=== PATIENT | female | born 1970 | race Caucasian/White ===

== ENCOUNTER 2017-06-03 15:07 | Outpatient (CLI) | payer OTHER ==
[2017-06-03 19:05] LABS: FERRITIN 47.1 ng/mL (11.0-306.8); TOTAL T3 1.29 ng/mL (0.87-1.78)
[2017-06-03 19:16] LABS: THYROID STIMULATING HORMONE 1.6 uIU/mL (0.34-5.60)
== END 2017-06-03 15:08 | disposition home or self-care (01) ==
LOC: LAB.F 15:07
PROVIDERS: ATTEND Family Medicine
DX: E03.9 Hypothyroidism, unspecified (principal); E55.9 Vitamin D deficiency, unspecified; R53.83 Other fatigue
CPT/HCPCS: 36415; 82626; 82728; 84439; 84443; 84480; 84481; 84482

== ENCOUNTER 2017-11-20 07:58 | Outpatient (CLI) | payer OTHER ==
[2017-11-20 13:12] LABS: FREE T4 (FREE THYROXINE) 0.76 ng/dL (0.58-1.64); THYROID STIMULATING HORMONE 2.51 uIU/mL (0.34-5.60)
[2017-11-20 13:16] LABS: FERRITIN 46.6 ng/mL (11.0-306.8); TOTAL T3 1.1 ng/mL (0.87-1.78)
[2017-11-26 10:46] LABS: T3 REVERSE 13 ng/dL (8-25)
== END 2017-11-20 07:59 | disposition home or self-care (01) ==
LOC: LAB.F 07:58
PROVIDERS: ATTEND Family Medicine
DX: E03.9 Hypothyroidism, unspecified (principal); R53.83 Other fatigue
CPT/HCPCS: 36415; 82626; 82728; 84439; 84443; 84480; 84481; 84482

== ENCOUNTER 2018-04-07 17:16 | Outpatient (CLI) | payer OTHER | END 2018-04-07 17:17 | disposition critical access hospital (66) | LOC: EMS 17:16 | PROVIDERS: ATTEND Surgery | DX: M25.511 Pain in right shoulder (principal); M54.2 Cervicalgia; V28.4XXA Motorcycle driver injured in noncollision transport accident in traffic accident, initial encounter; Y92.410 Unspecified street and highway as the place of occurrence of the external cause | CPT/HCPCS: A0425; A0429 ==

== ENCOUNTER 2018-04-07 17:53 | Emergency (ER) | payer OTHER ==
[2018-04-07 18:53] VITALS: BP 119/78
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
== END 2018-04-07 19:45 | disposition home or self-care (01) ==
LOC: ED 17:53
DX: Z04.1 Encounter for examination and observation following transport accident (principal); V28.4XXA Motorcycle driver injured in noncollision transport accident in traffic accident, initial encounter
CPT/HCPCS: 71045; 72125; 99283

== ENCOUNTER 2020-05-15 16:45 | Outpatient (CLI) | payer OTHER | END 2020-05-15 16:46 | disposition home or self-care (01) | LOC: COV 16:45 | PROVIDERS: ATTEND Family Medicine | DX: R50.9 Fever, unspecified (principal); R53.83 Other fatigue; R19.7 Diarrhea, unspecified; J02.9 Acute pharyngitis, unspecified; Z20.828 Contact with and (suspected) exposure to other viral communicable diseases ==

== ENCOUNTER 2021-11-20 07:44 | Outpatient (CLI) | payer OTHER ==
--- NOTE | 2021-11-21 06:44 | Mammography Report ---
BILATERAL DIGITAL SCREENING MAMMOGRAM 3D/2D WITH EXAGGERATED CC: 11/20/2021 CLINICAL: Routine screening. Family history of breast cancer. Comparison is made to exams dated: 07/18/2008 mammogram - and 07/02/2015 mammo gram - [facility]. The tissue of both breasts is heterogeneously dense. This may l ower the sensitivity of mammography. No significant masses, calcifications, or other findings are seen in either breast. There has been no significant interval change. IMPRESSION: NEGATIVE There is no mammographic evidence of malignancy. A 1 year screening mammogram is recommended. This exam was interpreted at Station ID: [id number]. NOTE: For mammograms, a report in lay terms will be sent to the patient. Approximately 15% of breast malignancies will not be visualized mammographically. In the management of a palpable breast mass, a negative mammogram must not discourage biopsy of a clinically suspicious lesion. Electronically Signed By: Edgar Mares M.D. aty/penrad:11/20/2021 08:43:29 ACR BI-RADS Category 1: Negative 3341F PARENCHYMAL PATTERN: (D) - The breast(s) demonstrate(s) heterogeneously dense fibroglandular partoni ma. BI-RADS CATEGORY: (1) - 1 RECOMMENDATION: (ANNUAL) - Recommend routine annual screening mammography. [id number] 1 year screening LATERALITY: (B)
== END 2021-11-20 07:45 | disposition home or self-care (01) ==
LOC: DI.S 07:44
PROVIDERS: ATTEND Family Medicine
DX: Z12.31 Encounter for screening mammogram for malignant neoplasm of breast (principal); Z80.3 Family history of malignant neoplasm of breast

== ENCOUNTER 2023-01-19 07:11 | Outpatient (CLI) | payer OTHER ==
[2023-01-19 15:19] LABS: BASOPHILS # (AUTO) 0.1 10^3/uL (0.0-0.1); BASOPHILS % (AUTO) 1.1 %; EOSINOPHILS # (AUTO) 0.3 10^3/uL (0.0-0.7); EOSINOPHILS % (AUTO) 4.7 %; HCT - HEMATOCRIT 44.6 % (37.0-47.0); HGB - HEMOGLOBIN 14.3 g/dL (12.0-16.0); LYMPHOCYTES # (AUTO) 1.5 10^3/uL (1.5-3.5); LYMPHOCYTES % (AUTO) 24.4 %; MEAN CORPUSCULAR HEMOGLOBIN 30.6 pg (27.0-31.0); MEAN CORPUSCULAR HGB CONC 32.1 g/dL (32.0-36.0); MEAN CORPUSCULAR VOLUME 95.5 fL (81.0-99.0); MEAN PLATELET VOLUME 10.1 fL (7.9-10.8); MONOCYTES # (AUTO) 0.6 10^3/uL (0.0-1.0); NEUTROPHILS # (AUTO) 3.8 10^3/uL (1.5-6.6); NEUTROPHILS % (AUTO) 59.6 %; PLT - PLATELET COUNT 297 10^3/uL (130-450); RED BLOOD COUNT 4.67 10^6/uL (4.20-5.40); WHITE BLOOD COUNT 6.3 x10^3/uL (4.8-10.8)
[2023-01-19 15:53] LABS: % IRON SATURATION 25 % (20-50); ALBUMIN 3.8 g/dL (3.2-5.5); ALBUMIN/GLOBULIN RATIO 1.6 (1.0-2.2); ALKALINE PHOSPHATASE 44 IU/L (42-121); ALT ALANINE AMINOTRANSFERASE 23 IU/L (10-60); AST ASPARTATE AMINOTRANSFERASE 24 IU/L (10-42); BILIRUBIN,TOTAL 0.9 mg/dL (0.2-1.0); BUN - BLOOD UREA NITROGEN 9 mg/dL (6-20); CARBON DIOXIDE - CO2 29 mmol/L (21-32); CHLORIDE 103 mmol/L (101-111); CHOL/HDL RATIO 3.1 (<4.4); CHOLESTEROL 206 mg/dL; CREATININE 0.6 mg/dL (0.4-1.0); CRP HIGH SENSITIVITY 17.4 mg/L; GFR - MDRD 104 (>89); GLUCOSE 96 mg/dL (70-100); HDL CHOLESTEROL 67 mg/dL; IRON 63 ug/dL (28-170); LDL CHOLESTEROL,CALCULATED 126 mg/dL; LDL/HDL RATIO 1.9 (<4.4); POTASSIUM 4.3 mmol/L (3.5-5.0); SODIUM 139 mmol/L (135-145); TOTAL IRON BINDING CAPACITY 248 ug/dL (250-450); TOTAL PROTEIN 6.2 g/dL (6.7-8.2); TRANSFERRIN 177 mg/dL (192-382); TRIGLYCERIDES 67 mg/dL; VLDL CHOLESTEROL 13 mg/dL
[2023-01-19 16:01] LABS: THYROID STIMULATING HORMONE 2.39 uIU/mL (0.34-5.60)
[2023-01-19 16:05] LABS: FREE T3 3.33 pg/mL (2.5-3.9)
[2023-01-19 16:06] LABS: FREE T4 (FREE THYROXINE) 0.62 ng/dL (0.58-1.64)
[2023-01-19 16:10] LABS: FERRITIN 63.6 ng/mL (11.0-306.8)
[2023-01-19 20:29] LABS: ESTIMATED AVERAGE GLUCOSE 105 mg/dL (70-100); HEMOGLOBIN A1c% 5.3 % (4.27-6.07)
== END 2023-01-19 07:12 | disposition home or self-care (01) ==
LOC: LAB.S 07:11
PROVIDERS: ATTEND Family Medicine
DX: E03.9 Hypothyroidism, unspecified (principal); R53.83 Other fatigue; E78.5 Hyperlipidemia, unspecified; E55.9 Vitamin D deficiency, unspecified; R73.09 Other abnormal glucose; D64.9 Anemia, unspecified
CPT/HCPCS: 36415; 80053; 80061; 82626; 82728; 83036; 83090; 83540; 83721; 84439; 84443; 84466; 84480; 84481; 84482; 85025; 86141

== ENCOUNTER 2023-04-09 07:12 | Outpatient (CLI) | payer OTHER ==
--- NOTE | 2023-04-09 14:14 | XRAY Report ---
PROCEDURE: Cervical Spine 2 View INDICATIONS: NECK PAIN, B/L PARESTHESIAS TECHNIQUE: 4 view(s) of the cervical spine were acquired. COMPARISON: CT of cervical spine dated 04/07/2018. FINDINGS: Bones: No fractures or dislocations to the T1 level. Degenerative endplate changes, loss of disc hei ght and bilateral facet hypertrophic changes are seen throughout cervical spine. The lateral masses of C1 appear intact on the odontoid view. No suspicious bony lesions. Soft tissues: No prevertebral soft tissue swelling. IMPRESSION: Moderate degenerative disc disease throughout cervical spine. No acute cervical spine fr acture or dislocation. Reviewed by: Vinny Ferrer MD on 04/09/2023 2:13 PM PDT Approved by: Vinny Ferrer MD on 04/09/2023 2:13 PM PDT Station ID: [id number]
[2023-04-09 14:48] LABS: BASOPHILS # (AUTO) 0.1 10^3/uL (0.0-0.1); BASOPHILS % (AUTO) 1.1 %; EOSINOPHILS # (AUTO) 0.2 10^3/uL (0.0-0.7); EOSINOPHILS % (AUTO) 2.3 %; HCT - HEMATOCRIT 46.3 % (37.0-47.0); HGB - HEMOGLOBIN 15.3 g/dL (12.0-16.0); LYMPHOCYTES # (AUTO) 2.1 10^3/uL (1.5-3.5); LYMPHOCYTES % (AUTO) 32.2 %; MEAN CORPUSCULAR HEMOGLOBIN 30.8 pg (27.0-31.0); MEAN CORPUSCULAR VOLUME 93.2 fL (81.0-99.0); MEAN PLATELET VOLUME 10.1 fL (7.9-10.8); MONOCYTES # (AUTO) 0.6 10^3/uL (0.0-1.0); MONOCYTES % (AUTO) 8.3 %; NEUTROPHILS # (AUTO) 3.7 10^3/uL (1.5-6.6); NEUTROPHILS % (AUTO) 55.9 %; PLT - PLATELET COUNT 315 10^3/uL (130-450); RED BLOOD COUNT 4.97 10^6/uL (4.20-5.40); RED CELL DISTRIBUTION WIDTH 12.7 % (12.0-15.0); WHITE BLOOD COUNT 6.6 x10^3/uL (4.8-10.8)
[2023-04-09 15:27] LABS: THYROID STIMULATING HORMONE 3.52 uIU/mL (0.34-5.60)
[2023-04-09 15:29] LABS: FREE T3 3.52 pg/mL (2.5-3.9); FREE T4 (FREE THYROXINE) 0.85 ng/dL (0.58-1.64)
[2023-04-09 15:33] LABS: ALBUMIN 3.9 g/dL (3.2-5.5); ALBUMIN/GLOBULIN RATIO 1.3 (1.0-2.2); BILIRUBIN,TOTAL 0.6 mg/dL (0.2-1.0); CALCIUM 9.1 mg/dL (8.5-10.3); CREATININE 0.7 mg/dL (0.4-1.0); CRP HIGH SENSITIVITY 0.9 mg/L
[2023-04-09 15:34] LABS: FERRITIN 50.7 ng/mL (11.0-306.8)
[2023-04-10 08:10] LABS: VITAMIN D 25-HYDROXY 88.6 ng/mL (30.0-100.0)
[2023-04-13 20:07] LABS: REVERSE T3 SERUM 12.7 ng/dL (.)
== END 2023-04-09 07:13 | disposition home or self-care (01) ==
LOC: DI.S 07:12
PROVIDERS: ATTEND Family Medicine
DX: M50.30 Other cervical disc degeneration, unspecified cervical region (principal); E03.9 Hypothyroidism, unspecified; E78.5 Hyperlipidemia, unspecified; R53.83 Other fatigue; D64.9 Anemia, unspecified; R00.2 Palpitations; E55.9 Vitamin D deficiency, unspecified
CPT/HCPCS: 36415; 80053; 82306; 82626; 82728; 83540; 84439; 84443; 84466; 84480; 84481; 84482; 85025; 86141

== ENCOUNTER 2023-11-04 07:12 | Outpatient (CLI) | payer OTHER ==
[2023-11-04 14:32] LABS: BASOPHILS # (AUTO) 0.1 10^3/uL (0.0-0.1); BASOPHILS % (AUTO) 1.2 %; EOSINOPHILS # (AUTO) 0.2 10^3/uL (0.0-0.7); EOSINOPHILS % (AUTO) 3.6 %; HCT - HEMATOCRIT 45.4 % (37.0-47.0); HGB - HEMOGLOBIN 14.5 g/dL (12.0-16.0); LYMPHOCYTES # (AUTO) 2.2 10^3/uL (1.5-3.5); LYMPHOCYTES % (AUTO) 33.8 %; MEAN CORPUSCULAR HEMOGLOBIN 30.8 pg (27.0-31.0); MEAN CORPUSCULAR HGB CONC 31.9 g/dL (32.0-36.0); MEAN CORPUSCULAR VOLUME 96.4 fL (81.0-99.0); MEAN PLATELET VOLUME 10.1 fL (7.9-10.8); MONOCYTES # (AUTO) 0.5 10^3/uL (0.0-1.0); NEUTROPHILS # (AUTO) 3.5 10^3/uL (1.5-6.6); NEUTROPHILS % (AUTO) 54.2 %; PLT - PLATELET COUNT 299 10^3/uL (130-450); RED BLOOD COUNT 4.71 10^6/uL (4.20-5.40); RED CELL DISTRIBUTION WIDTH 12.7 % (12.0-15.0); WHITE BLOOD COUNT 6.5 x10^3/uL (4.8-10.8)
[2023-11-04 15:58] LABS: THYROID STIMULATING HORMONE 2.34 uIU/mL (0.34-5.60)
[2023-11-04 16:06] LABS: FERRITIN 44.1 ng/mL (11.0-306.8)
[2023-11-04 16:10] LABS: ALBUMIN/GLOBULIN RATIO 1.5 (1.0-2.2); BILIRUBIN,TOTAL 0.9 mg/dL (0.2-1.0); CALCIUM 9.2 mg/dL (8.5-10.3); CREATININE 0.7 mg/dL (0.6-1.3); CRP HIGH SENSITIVITY 1.3 mg/L; POTASSIUM 4.2 mmol/L (3.5-4.5); TOTAL PROTEIN 6.6 g/dL (6.4-8.9)
== END 2023-11-04 07:13 | disposition home or self-care (01) ==
LOC: LAB.S 07:12
PROVIDERS: ATTEND Family Medicine
DX: E03.9 Hypothyroidism, unspecified (principal); E78.5 Hyperlipidemia, unspecified; R53.83 Other fatigue; D64.9 Anemia, unspecified; R00.2 Palpitations
CPT/HCPCS: 36415; 80053; 82626; 82728; 83090; 83540; 84439; 84443; 84466; 84480; 84481; 84482; 85025; 86141

== ENCOUNTER 2023-12-22 07:42 | Outpatient (CLI) | payer OTHER ==
--- NOTE | 2023-12-23 09:54 | Mammography Report ---
BILATERAL DIGITAL SCREENING MAMMOGRAM 3D/2D WITH EXAGGERATED CC: 12/22/2023 CLINICAL: Routine screening. Family history of breast cancer. Comparison is made to exams dated: 11/20/2021 mammogram and 07/02/2015 mammogram - [facility]. Both breasts are heterogeneously dense, which may obscure small masses (category c / 51-75% glandular tissue). No significant masses, calcifications, or other findings are seen in either breast. There has been no significant interval change. IMPRESSION: NEGATIVE There is no mammographic evidence of malignancy. A 1 year screening mammogram is recommended. Based on Tyrer-Cuzick model (a risk assessment model), the patient's lifetime risk is 20.2% and her 1 0 year risk is 6.4%. If a patient has an elevated risk, a more comprehensive evaluation should be con sidered and/or a referral to a genetic counselor. The [place] [employer], [employer], and NCCN Guidelines advise the consideration of Breast MRI as an adjunct to screening mammog natasha in patients whose "Lifetime risk to develop breast cancer" is 20% or higher. This exam was interpreted at Station ID: [id number]. NOTE: For mammograms, a report in lay terms will be sent to the patient. Approximately 15% of breast malignancies will not be visualized mammographically. In the management of a palpable breast mass, a negative mammogram must not discourage biopsy of a clinically suspicious lesion. Electronically Signed By: Edgar Mares M.D. aty/penrad:12/22/2023 09:25:44 ACR BI-RADS Category 1: Negative 3341F PARENCHYMAL PATTERN: (D) - The breast(s) demonstrate(s) heterogeneously dense fibroglandular parkerriy ma. BI-RADS CATEGORY: (1) - 1 RECOMMENDATION: (ANNUAL) - Recommend routine annual screening mammography. [id number] 1 year screening LATERALITY: (B)
== END 2023-12-22 07:43 | disposition home or self-care (01) ==
LOC: DI.S 07:42
PROVIDERS: ATTEND Family Medicine
DX: Z12.31 Encounter for screening mammogram for malignant neoplasm of breast (principal); Z80.3 Family history of malignant neoplasm of breast; R92.323 Mammographic fibroglandular density, bilateral breasts

== ENCOUNTER 2024-03-16 07:09 | Outpatient (CLI) | payer OTHER ==
[2024-03-16 15:03] LABS: BASOPHILS # (AUTO) 0.1 10^3/uL (0.0-0.1); BASOPHILS % (AUTO) 1.4 %; EOSINOPHILS # (AUTO) 0.2 10^3/uL (0.0-0.7); EOSINOPHILS % (AUTO) 3.2 %; HCT - HEMATOCRIT 44.9 % (37.0-47.0); HGB - HEMOGLOBIN 14.9 g/dL (12.0-16.0); LYMPHOCYTES # (AUTO) 2.4 10^3/uL (1.5-3.5); LYMPHOCYTES % (AUTO) 37.1 %; MEAN CORPUSCULAR HGB CONC 33.2 g/dL (32.0-36.0); MEAN CORPUSCULAR VOLUME 96.6 fL (81.0-99.0); MEAN PLATELET VOLUME 9.9 fL (7.9-10.8); MONOCYTES # (AUTO) 0.5 10^3/uL (0.0-1.0); MONOCYTES % (AUTO) 7.4 %; NEUTROPHILS # (AUTO) 3.3 10^3/uL (1.5-6.6); NEUTROPHILS % (AUTO) 50.7 %; PLT - PLATELET COUNT 326 10^3/uL (130-450); RED BLOOD COUNT 4.65 10^6/uL (4.20-5.40); RED CELL DISTRIBUTION WIDTH 12.9 % (12.0-15.0); WHITE BLOOD COUNT 6.6 x10^3/uL (4.8-10.8)
[2024-03-16 15:47] LABS: % IRON SATURATION 66 % (20-50); ALBUMIN 4.3 g/dL (3.2-5.5); ALBUMIN/GLOBULIN RATIO 1.7 (1.0-2.2); ALKALINE PHOSPHATASE 83 IU/L (42-121); ALT ALANINE AMINOTRANSFERASE 72 IU/L (10-60); AST ASPARTATE AMINOTRANSFERASE 37 IU/L (10-42); BILIRUBIN,TOTAL 0.9 mg/dL (0.2-1.0); BUN - BLOOD UREA NITROGEN 15 mg/dL (6-20); CALCIUM 9.5 mg/dL (8.5-10.3); CARBON DIOXIDE - CO2 29 mmol/L (21-32); CHLORIDE 103 mmol/L (101-111); CHOL/HDL RATIO 3.3 (<4.4); CHOLESTEROL 240 mg/dL; CREATININE 0.7 mg/dL (0.6-1.3); CRP HIGH SENSITIVITY 1.14 mg/L; GFR - MDRD 87 (>89); GLUCOSE 82 mg/dL (74-104); HDL CHOLESTEROL 73 mg/dL; IRON 184 ug/dL (50-212); LDL CHOLESTEROL,CALCULATED 141 mg/dL; LDL/HDL RATIO 1.9 (<4.4); POTASSIUM 3.8 mmol/L (3.5-4.5); SODIUM 138 mmol/L (135-145); TOTAL IRON BINDING CAPACITY 279 ug/dL (250-450); TOTAL PROTEIN 6.8 g/dL (6.4-8.9); TRANSFERRIN 199 mg/dL (203-362); TRIGLYCERIDES 131 mg/dL (48-352); VLDL CHOLESTEROL 26 mg/dL
[2024-03-16 15:59] LABS: THYROID STIMULATING HORMONE 3.85 uIU/mL (0.34-5.60)
[2024-03-16 16:06] LABS: FERRITIN 75.6 ng/mL (11.0-306.8)
[2024-03-16 21:15] LABS: ESTIMATED AVERAGE GLUCOSE 105 mg/dL (70-100); HEMOGLOBIN A1c% 5.3 % (4.27-6.07)
[2024-03-17 07:15] LABS: VITAMIN D 25-HYDROXY 73.9 ng/mL (30.0-100.0)
[2024-03-17 08:13] LABS: ESTRADIOL 22.3 pg/mL (.); PROGESTERONE 0.2 ng/mL (.)
== END 2024-03-16 07:10 | disposition home or self-care (01) ==
LOC: LAB.S 07:09
PROVIDERS: ATTEND Family Medicine
DX: E03.9 Hypothyroidism, unspecified (principal); E55.9 Vitamin D deficiency, unspecified; D64.9 Anemia, unspecified; R73.09 Other abnormal glucose; E78.5 Hyperlipidemia, unspecified; N95.1 Menopausal and female climacteric states
CPT/HCPCS: 36415; 80053; 80061; 82306; 82626; 82670; 82728; 83001; 83036; 83090; 83540; 83721; 84144; 84439; 84443; 84466; 84480; 84481; 84482; 85025; 86141